=== PATIENT | male | born 1965 | race Caucasian/White ===

== ENCOUNTER 2025-10-20 00:06 | Day surgery (SDC) | payer BC, SELFPAY ==
[2025-10-01 12:43] VITALS: BMI 28.0
--- OUTSIDE RECORDS SUMMARY | 2025-10-20 00:15 | XMS_ITS | Encounter Summary ---
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 Historical Provider Final Res ult documented in this encounter Visit Diagnoses Not on filedocumented in this encounter Care Teams Payroll Specialist Relationship Specialty Start Date End Date Omkar Sifuentes MD [address] [address] PCP - General Family Medicine 09/11/18 documented as of this encounter
--- OUTSIDE RECORDS SUMMARY | 2025-10-20 00:15 | XMS_ITS | Clinical Summary ---
Author Organization [facility] Address [address] [place] [address] Care Team Providers Care Cable Tender Name Role Phone Omkar Sifuentes MD Primary Care Provider [phone] Allergies Active Allergy Reactions Criticality Noted Date Comments Erythromycin Swelling Medium 10/28/1972 Erythromycin Base Unknown 03/11/2024 Penicillins Swelling,Unknown Medium 10/28/1972 Medications sertraline (ZOLOFT) 100 mg tablet Take 1 tablet (100 mg total) by mouth daily 12/29/2021 Active MEN'S MULTI-VITAMIN ORAL Take by mouth Active rosuvastatin (CRESTOR) 10 mg tablet TAKE 1 TABLET(10 MG) BY MOUTH DAILY 90 tablet 1 01/01/2025 Active Active Problems Problem Noted Date Diagnosed Date Acute cough 01/11/2023 Annual physical exam 01/05/2022 Encounters Date Type Department Care Team Description 08/24/2025 Results Follow-Up [facility] Family Medicine at [address] [place] [address] Omkar Sifuentes MD CBC with auto differential, Comprehensive metabolic panel, Lipid panel 08/18/2025 Patient Message [facility] Medical [facility] Medicine at [address] [place] [address] Omkar Sifuentes MD Colonoscopy from Last 3 Months Immunizations Immunization Administration Dates Next Due Influenza, Unspecified 07/28/2024(Deferr ed: Patient Refused),07/28/2023(Deferred: Patient Refused),01/11/2023(Deferred: Patient Refused),08/20/2022(Deferred: Patient Refused),08/16/2021(Deferred: Patient Refused) Tdap 09/09/2018 ZOSTER Recombinant 03/10/2022,01/07/2022 Medical History Medical History Date Comments Anxiety Depression Suicidal behavior with attempted self-injury (HC C) Family History Medical History Relation Name Comments No Known Problems Father No Known Problems Mother Relation Name Status Comments Father Mother Social History Tobacco Use Types Packs/Day Years Used Date Smoking Tobacco: Some Days Cigars Smokeless Tobacco: Never Tobacco Cessation:Ready to Q uit: Not Asked; Counseling Given: Not Answered Alcohol Use Standard Drinks/Week Comments No 0 (1 standard drink = 0.6 oz pur e alcohol) AUDIT-C Answer Date Recorded Q1: How often do you have a drink containing alc ohol? Monthly or less 01/13/2024 Q2: How many drinks containi ng alcohol do you have on a typical day when you are drinking? 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 Gender Identity Not on file Sexual Orientation Not on file Last Filed Vital Signs Vital Sign Reading Time Taken Comments Blood Pressure 124/70 02/25/2025 3:27 PM CDT Pulse 92 02/25/2025 3:27 PM CDT Temperature 36.9 C (98.4 F) 02/25/2025 3:27 PM CDT Respiratory Rate 18 01/13/2024 8:15 AM CDT Oxygen Saturation 96% 02/25/2025 3:27 PM CDT Inhaled Oxygen Concentration - - Weight 89.6 kg (197 lb 8 oz) 02/25/2025 3:27 PM CDT Height 175.3 cm (5' 9) 02/25/2025 3:27 PM CDT Body Mass Index 29.17 02/25/2025 3:27 PM CDT Plan of Treatment Health Maintenance Due Date Last Done Comments Colon Cancer Screening-Colonoscopy 1965 Hepatitis C Screening 1965 Hepatitis B Screening 1983 Pneumococcal vaccine <65 (1 of 2 - PCV) 1984 Covid-19 Vaccine (5 - 2024-2 6 season) 2025 09/29/2022, 10/14/2021, 01/24/2021, Additional history exists Influenza Vaccine (#1) 2025 Prostate Cancer Screening-PSA 01/05/2026, 01/15/2023, 01/09/2022, Additional history exists Depression Screening 02/25/2026 02/25/2025, 01/11/2023, 01/05/2022 Regular Well Visit/Exam 18-64 02/25/2026, 01/13/2024, 01/11/2023, Additional history exists DTaP/Tdap/Td Vaccine (2 - Td or Tdap) 09/09/2028 09/09/2018 Zoster Vaccine Completed 03/10/2022, 01/07/2022 Procedures Procedure Name Priority Date/Time Associated Diagnosis Comments LIPID PANEL Routine 08/17/2025 10:37 AM CDT Annual physical exam COMPREHENSIVE METABOLIC PANEL Routine 08/17/2025 10:37 AM CDT Annual physical exam CBC WITH AUTO DIFFERENTIAL Routine 08/17/2025 10:37 AM CDT Annual physical exam PSA SCREEN Routine 01/06/2024 7:33 AM CDT Annual physical exam Elevated glucose Elevated platelet count Elevated cholesterol from Last 3 Months or Most Recently Relevant to Health Maintenance Results * (ABNORMAL) CBC with auto differential (08/17/2025 10:37 AM CDT) Pathologist [facility] WBC 5.9 3.8 - 10.8 Thousand/u L [facility] RBC, POC 5.09 4.20 - 5.80 Million/uL [facility] Hgb 15.8 13.2 - 17.1 g/dL [facility] Hct 47.7 38.5 - 50.0 % [facility] MCV 93.7 80.0 - 100.0 fL [facility] MCH 31.0 27.0 - 33.0 pg [facility] MCHC 33.1 32.0 - 36.0 g/dL [facility] Comment: For adults, a slight decrease in the calculated MCHC value (in the range of 30 to 32 g/dL) is most likely not clinically significant; however, it should be interpreted with caution in correlation with other red cell parameters and the patient's clinical condition. Rdw 12.2 11.0 - 15.0 % [facility] Platelets 431(H) 140 - 400 Thousand/u L [facility] MPV 9.6 7.5 - 12.5 fL [facility] Neutrophils, abs 3,806 1,500 - 7,800 cells/uL [facility] Lymphocytes, abs 1,375 850 - 3,900 cells/uL [facility] Monocyte abs 419 200 - 950 cells/uL [facility] Eosinophils, abs 260 15 - 500 cells/uL [facility] Basophils, abs 41 0 - 200 cells/uL [facility] Neutrophils 64.5 % [facility] Lymphocyte pct 23.3 % [facility] Monocytes 7.1 % [facility] Eosinophils 4.4 % [facility] Basophils 0.7 % [facility] Blood 08/17/2025 10:3 7 AM CDT 08/17/2025 10:38 AM CDT us Omkar Sifuentes MD LAB BLOOD ORDERABLES Final Re sult [facility] [address] [id number] * (ABNORMAL) Lipid panel (08/17/2025 10:37 AM CDT) Cholesterol 331(H) <200 mg/dL [facility] HDL 49 > OR = 40 mg/dL [facility] Triglycerides 129 <150 mg/dL [facility] LDL 255(H) mg/dL (calc) [facility] Comment: LDL-C levels > or = 190 mg/dL may indicate familial hypercholesterolemia (FH). Clinical assessment and measurement of blood lipid levels should be considered for all first degree relatives of patients with an FH diagnosis. LDL Cholesterol (LDL-C) levels > or = 300 mg/dL may indicate homozygous familial hypercholesterolemia (HoFH). Untreated, these extremely high LDL-C levels can result in premature CV events and mortality. Patients should be identified early and provided appropriate interventions to reduce the cumulative LDL-C burden from . For questions about testing for familial hypercholesterolemia, please call [employer] at 1.755.GENE.INFO. Kike Ellison, et al. J National Lipid Association Recommendations for Patient-Centered Management of Dyslipidemia: Part 1 Journal of Clinical Lipidology 2015;9(2), 129-169. Mina Souza et al. (2014). Homozygous familial hypercholesterolaemia: new insights and guidance for clinicians to improve detection and clinical management. Heart Journal, 35(32), 3034-5577. Reference range: <100 Desirable range <100 mg/dL for primary prevention; <70 mg/dL for patients with CHD or diabetic patients with > or = 2 CHD risk factors. LDL-C is now calculated using the Rip-Rayo calculation, which is a validated novel method providing better accuracy than the Friedewald equation in the estimation of LDL-C. Rip LEAHY et al. VANNESSA. 2013;310(19): 9752-4787 (http://education.iCentera.[employer]/faq/PLX477) Chol/HDL ratio 6.8(H) <5.0 (calc) [facility] Non-HDL, (LDL+VLDL) 282(H) <130 mg/dL (calc) [facility] Comment: Non-HDL level > or = 220 is very high and may indicate genetic familial hypercholesterolemia (FH). Clinical assessment and measurement of blood lipid levels should be considered for all first-degree relatives of patients with an FH diagnosis. For patients with diabetes plus 1 major ASCVD risk factor, treating to a non-HDL-C goal of <100 mg/dL (LDL-C of <70 mg/dL) is considered a therapeutic option. Blood 08/17/2025 10:3 7 AM CDT 08/17/2025 10:38 AM CDT us Omkar Sifuentes MD LAB BLOOD ORDERABLES Final Re sult [facility] [address] [id number] * (ABNORMAL) Comprehensive metabolic panel (08/17/2025 10:37 AM CDT) Glucose 92 65 - 99 mg/dL [facility] Comment: Fasting reference interval BUN 13 7 - 25 mg/dL [facility] Creatinine 0.73 0.70 - 1.30 mg/dL [facility] eGFR 105 > OR = 60 mL/min/1.7 3m2 [facility] BUN/creat ratio SEE NOTE: 6 - 22 (calc) [facility] Comment: Not Reported: BUN and Creatinine are within reference range. Sodium 136 135 - 146 mmol/L [facility] Potassium, pl 4.4 3.5 - 5.3 mmol/L [facility] Chloride 101 98 - 110 mmol/L [facility] CO2 27 20 - 32 mmol/L [facility] Calcium 9.9 8.6 - 10.3 mg/dL [facility] Protein, sr 7.6 6.1 - 8.1 g/dL [facility] Albumin 4.7 3.6 - 5.1 g/dL [facility] GLOBULIN 2.9 1.9 - 3.7 g/dL (calc) [facility] Alb/glob ratio 1.6 1.0 - 2.5 (calc) [facility] Bilirubin, total 1.6(H) 0.2 - 1.2 mg/dL [facility] Alk phos 53 35 - 144 U/L [facility] AST 19 10 - 35 U/L [facility] ALT (SGPT) 40 9 - 46 U/L [facility] Blood 08/17/2025 10:3 7 AM CDT 08/17/2025 10:38 AM CDT Omkar Sifuentes MD LAB BLOOD ORDERABLES Final Re sult Performing Organization Address [facility] de Phone Number [facility] [address] [facility] [place] [address] * PSA screen (01/06/2024 7:33 AM CDT) PSA 1.40 < OR = 4.00 ng/mL [facility] Comment: The total PSA value from this assay system is standardized against the WHO standard. The test result will be approximately 20% lower when compared to the equimolar-standardized total PSA (Sean Diony). Comparison of serial PSA results should be interpreted with this fact in mind. This test was performed using the Siemens chemiluminescent method. Values obtained from different assay methods cannot be used interchangeably. PSA levels, regardless of value, should not be interpreted as absolute evidence of the presence or absence of disease. Blood 01/06/2024 7:33 AM CDT 01/06/2024 7:34 AM CDT Omkar Sifuentes MD LAB BLOOD ORDERABLES Final Re sult Performing Organization Address [facility] Co de Phone Number [facility] [address] [facility] [place] [address] from Last 3 Months or Most Recently Relevant to Health Maintenance Insurance [facility] [place] Advance Directives For more information, please contact: [phone] Documents on File Type Date Recorded Patient Yard Clerk Expl anation Power of Travel Clerk 01/05/2022 9:16 AM Care Teams Cable Tender Relationship Specialty Start Date End Date Omkar Sifuentes MD [address] [place] [address] PCP - General Family Medicine 09/11/18
--- OUTSIDE RECORDS SUMMARY | 2025-10-20 00:15 | XMS_ITS | Clinical Summary ---
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 Gender Identity Not on file Sexual Orientation Not on file Plan of Treatment Health Maintenance Due Date Last Done Comments Colorectal Cancer Screening Colonoscopy (10 Years) 1965 Annual Physical 1968 Hepatitis C 1983 Pneumococcal Vaccine: 50+ Years (1 of 1 - PCV) 2015 Zoster Vaccines (2 of 2) 03/04/2022 01/07/2022 COVID-19 Vaccine (4 - 2024-2 6 season) 2025 10/14/2021, 01/24/2021, 01/03/2021 Influenza Adult (#1) 2025 DTaP, Tdap and Td Vaccines ( 2 - Td or Tdap) 09/09/2028 09/09/2018 Hepatitis A Vaccines Aged Out No long er eligible based on patient's age to complete this topic Meningococcal B Vaccine Aged Out No l onger eligible based on patient's age to complete this topic Meningococcal Vaccine Aged Out No celsa kwasi eligible based on patient's age to complete this topic RSV Immunizations Under 20 Months Aged Out No longer eligible b ased on patient's age to complete this topic Insurance [facility] Care Teams Horses Or Mules Teamster Relationship Specialty Start Date End Date Omkar Sifuentes MD [address] [address] PCP - General FAMILY PRACTICE 01/08/22
--- OUTSIDE RECORDS SUMMARY | 2025-10-20 00:15 | XMS_ITS | Patient Health Record ---
Author Organization [facility] Address [address] [place] [address] Care Team Providers Care Rn Case Manager Name Role Phone Omkar Sifuentes MD Primary Care Provider Unavailab Nydia Lawrence Unavailable [phone] Margie Cesarloly Unavailable [phone] Allergies Allergen (clinical drug ingredient) Drug/Non Drug Allergy documented on EMR Reaction Allergy Type Onset Date Status erythromycin Erythromycin Base Unknown Drug Allergy 2023 Active Substance with penicillin structure and antibacterial mechanism of action (substance) Penicillins Unknown Drug Allergy 03/11/2024 Active Reason For Referral No Information Medications Medication SIG (Take, Route, Frequency, Duration) Notes Start Date End Date Status Sertraline HCl 100 MG Tablet 1 tablet Oral Once a day; Duration: 90 days 09/09/2025 Active Rosuvastatin Calcium 10 MG Tablet Oral 03/11/2024 Active Social History Tobacco Use: Social History Observation Description Date Details (start date - stop date) Light tobacco s moker NA - NA Sex Assigned At : Social History Observation Description Sex Assigned At Male Social History Miscellaneous: Social Info Question Answer Notes Advance Care Planning Are you your own decision-maker Yes Do you have Power of Tool Designer for Health or Medi ladi? Yes Do you have a power of attorney lawyer for health? Yes Do you have power of attorney lawyer for Medical ? Yes If yes, then please bring the POA paperwork so that we can upload it. Yes Safety issues: Are there any firearms in the house? No Social History Social Info Question Answer Notes Household: Marital Status: Number of Adults in household: 2 Number of Children in Household: 0 Level of Education: Professional Schools/Masters /PhD Drug/Alcohol: Social Info Question Answer Notes Drugs Have you used drugs other than those for medical reasons in the past 12 months? No AUDIT-C (Standard) Did you have a drink containing alcohol in the past year? Yes How often did you have six or more drinks on one occasion in the past year? Less than monthly (1 point) How many drinks did you have on a typical day when you were drinking in the past year? 1 or 2 drinks (0 point) How often did you have a drink containing alcohol in the past year? 2 to 4 times a month (2 points) Tobacco Use: Social Info Question Answer Notes Tobacco Control (Standard) Tobacco use: Light tobacco smoker Additional Details Category Social Info Options Details Miscellaneous: Occupation: Tool Designer Migrated Social History Migrated Social History Alcohol Intake: Occasional 03/11/2024,Tobacco Years: Former smoker 03/11/2024 Problems Problem Type SNOMED Code ICD Code Onset Dates Problem Status W/U Status Risk Notes Problem Recurrent major depression (84015203) Major depressive disorder, recurrent, unspecified (F33.9) Active confirmed Problem Recurrent major depression (29378508) MDD (recurrent major depressive disorder) in remission (F33.40) Active confirmed Problem Essential hypertension (15903463) Hypertension, unspecified type (I10) Active confirmed Vital Signs Heart Rate 70 /min 09/09/2025 Height-cm 172.72 cm 09/09/2025 Blood pressure diastolic 79 mm Hg 09/09/2025 Weight-kg 85.73 kg 09/09/2025 Height 68.00 in 09/09/2025 Blood pressure systolic 143 mm Hg 09/09/2025 Weight 189 lbs 09/09/2025 BMI 28.73 kg/m2 09/09/2025 Encounters Encounter Location Date Provider Diagnosis [facility] [address] [place] [address] 03/11/2025 Nydia Teixeira Nicotine use Z72.0 ; MDD (recurrent major depressive disorder) in remission F33.40 ; Encounter for screening for cardiovascular disorders Z13.6 and Negative depression screening Z13.31 [facility] [address] [place] [address] 09/09/2025 Nydia Teixeira MDD (recurrent major depressive disorder) in remission F33.40 and Nicotine use Z72.0 [facility] [address] [place] [address] 10/29/2024 [facility] [address] [place] [address] 04/01/2025 Nydia Teixeira [facility] [address] [place] [address] 04/01/2025 Nydia Teixeira Assessments Encounter Date Diagnosis (ICD Code) Assessment Notes Treatment Notes Treatment Clinical Notes Section Notes 03/11/2025 MDD (recurrent major depressive disorder) in remission (ICD-10 - F33.40) SSRI/SNRI side effects discussed including but not limited to, gastric upset, nausea, vomiting, diarrhea and/or constipation, weight changes, sexual side effects including loss of libido, increased suicidal thoughts/behavi ors in children and young adults, and serotonin syndrome. 03/11/2025 Nicotine use (ICD-10 - Z72.0) 09/09/2025 MDD (recurrent major depressive disorder) in remission (ICD-10 - F33.40) SSRI/SNRI side effects discussed including but not limited to, gastric upset, nausea, vomiting, diarrhea and/or constipation, weight changes, sexual side effects including loss of libido, increased suicidal thoughts/behavi ors in children and young adults, and serotonin syndrome. 09/09/2025 Nicotine use (ICD-10 - Z72.0) 03/11/2025 Encounter for screening for cardiovascular disorders (ICD-10 - Z13.6) 03/11/2025 Negative depression screening (ICD-10 - Z13.31) 03/11/2025 Other Stable, continue sertraline 100mg daily for mood- depression in remission status. Patient educated on all medications including potential benefits, side effects, risks. Educated on proper dosing schedule and importance of compliance. Previous records from Dr Cesar reviewed for continuity of care -Assessment and treatment plan reviewed with patient. -Compliance with treatment plan importance discussed. -Discussed the risks/benefits of this medication -Discussed medication side effects. -Contact office if symptoms worsen. -Discussed that it can take up to 6-8 weeks to see full therapeutic effects of psychotropic medications. -Crisis prevention hotline 988. 09/09/2025 Other Stable on current medication regimen, continue at current doses. -Refills sent in today -No concerns today Patient educated on all medications including potential benefits, side effects, risks. Educated on proper dosing schedule and importance of compliance. -Assessment and treatment plan reviewed with patient. -Compliance with treatment plan importance discussed. -Discussed the risks/benefits of this medication -Discussed medication side effects. -Contact office if symptoms worsen. -Discussed that it can take up to 6-8 weeks to see full therapeutic effects of psychotropic medications. -Crisis prevention hotline 168. Plan Of Treatment Next Appt Details Provider Name:Nydia Lexa hollingsworth, 03/03/2026 08:00:00 AM, [address], [facility] [address], [place], [address], Insurance Providers Payer Name Payer Address Payer Phone Subscriber Number Group Number Insured Name Patient Relationship to Insured Coverage Start Date Coverage End Date [facility] [address] [place] [address] [id number] ADALID PUTNAM Self - patient is the insured Medical (General) History Medical History History ICD Code Problems: Recurrent major depression , abdominal aortic aneurysm: No undefined atrial fibrillation: No chronic fatigue syndrome: No essential tremor: No hyperlipidemia: No hypertension: No Parkinson's disease: No restless leg syndrome: No stroke: No subdural hematoma: No type 1 diabetes mellitus: No type 2 diabetes mellitus: No vitamin B12 deficiency: No vitamin D deficiency: No
[2025-10-20 08:04] VITALS: BP 128/79; PULSE 75; RESP 16; TEMP 36.1; O2SAT 100
[2025-10-20] MEDS: LACTATED RINGERS 1,000 ML 150 ML IV CONT (08:10)
--- NOTE | 2025-10-20 08:29 | WPDANESEPPF ---
Anes - Initial Pre Proc Eval Procedure: Operation Date: 10/20/25 09:30 Proposed Procedures p Screening Colonoscopy - Lemuel Jacome MD Date/Time: 10/20/25 08:29 Surgeon: Lemuel Jacome MD Pre Op Diagnosis: Screening Patient Data Age: 59 Gender: M Height: 1.75 m Weight: 84.4 kg Last Vital Signs Temp 36.1 C L 10/20/25 08:04 Pulse 75 10/20/25 08:04 Resp 16 10/20/25 08:04 BP 128/79 10/20/25 08:04 Pulse Ox 100 10/20/25 08:04 O2 Del Method Room Air 10/20/25 08:04 Allergies Allergy/AdvReac Type Severity Reaction Status Date / Time erythromycin base Allergy Intermediate Unknown Verified 10/20/25 08:02 Penicillins Allergy Intermediate unknown Verified 10/20/25 08:02 Home Medications ?Medication ?Instructions ?Recorded ?Confirmed ?Type rosuvastatin 10 mg tablet 10 mg PO DAILY 10/01/25 10/20/25 History sertraline 100 mg tablet 100 mg PO DAILY 10/01/25 10/20/25 History Patient hx anesthesia problems: none Family hx anesthesia problems: none Results Review: All pre-operative results and documents have been reviewed as part of the pre-operative evaluation. [facility] Social History Social History Smoking status: Former smoker Tobacco type: cigarettes Alcohol intake: current Drinks per week: 2 Substance use type: does not use Living arrangements: with family Spiritual care concerns: No Anes - Eval Final PreProcedure Day of Procedure 10/20/25 08:29 Patient weight: overweight Heart: regular rate and rhythm Lungs: clear to auscultation Airway: Mallampati scale class II Neurological: alert and oriented Last oral intake: >/= 8 hours ASA classification: II Emergent: no Anesthetic plan: proceed Anesthesia type and monitoring: general GIVS and standard monitoring Results Review: All pre-operative results and documents have been reviewed as part of the pre-operative evaluation. Informed Consent: The patient's anesthetic plan and its attendant risks and benefits were discussed with the patient/family/POA. Questions were solicited and answers provided to the satisfaction of the patient/family/POA.
--- NOTE | 2025-10-20 08:31 | WPDANESEPPF ---
Anes - Initial Pre Proc Eval Procedure: Operation Date: 10/20/25 09:30 Proposed Procedures p Screening Colonoscopy - Lemuel Jacome MD Date/Time: 10/20/25 08:31 Surgeon: Lemuel Jacome MD Pre Op Diagnosis: Screening Patient Data Age: 59 Gender: M Height: 1.75 m Weight: 84.4 kg Last Vital Signs Temp 36.1 C L 10/20/25 08:04 Pulse 75 10/20/25 08:04 Resp 16 10/20/25 08:04 BP 128/79 10/20/25 08:04 Pulse Ox 100 10/20/25 08:04 O2 Del Method Room Air 10/20/25 08:04 Allergies Allergy/AdvReac Type Severity Reaction Status Date / Time erythromycin base Allergy Intermediate Unknown Verified 10/20/25 08:02 Penicillins Allergy Intermediate unknown Verified 10/20/25 08:02 Home Medications ?Medication ?Instructions ?Recorded ?Confirmed ?Type rosuvastatin 10 mg tablet 10 mg PO DAILY 10/01/25 10/20/25 History sertraline 100 mg tablet 100 mg PO DAILY 10/01/25 10/20/25 History Patient hx anesthesia problems: none Family hx anesthesia problems: none Results Review: All pre-operative results and documents have been reviewed as part of the pre-operative evaluation. [facility] [place] Social History Social History Smoking status: Former smoker Tobacco type: cigarettes Alcohol intake: current Drinks per week: 2 Substance use type: does not use Living arrangements: with family Spiritual care concerns: No Anes - Eval Final PreProcedure Day of Procedure 10/20/25 08:31 Patient weight: overweight Heart: regular rate and rhythm Lungs: clear to auscultation Airway: Mallampati scale class II Neurological: alert and oriented Last oral intake: >/= 8 hours ASA classification: II Emergent: no Anesthetic plan: proceed Anesthesia type and monitoring: general GIVS and standard monitoring Results Review: All pre-operative results and documents have been reviewed as part of the pre-operative evaluation. Informed Consent: The patient's anesthetic plan and its attendant risks and benefits were discussed with the patient/family/POA. Questions were solicited and answers provided to the satisfaction of the patient/family/POA.
--- NOTE | 2025-10-20 09:19 | PM.HPGS ---
History of Present Illness History of Present Illness Consent: Risks, benefits, and alternatives have been discussed and questions answered. Patient agrees to proceed with procedure. Chief complaint: Screening Narrative: Alvarado Plunkett is a 59 year old male here for screening colonoscopy Review of Systems Review of Systems: All systems reviewed & are unremarkable except as noted in HPI and below PMFSH Past Medical History Medical History (Updated 10/20/25 @ 09:20 by Lemuel Jacome MD) Colon cancer screening Social History Social History Smoking status: Former smoker Tobacco type: cigarettes Alcohol intake: current Drinks per week: 2 Substance use type: does not use Living arrangements: with family Spiritual care concerns: No Meds Home Medications and Allergies Home Medications ?Medication ?Instructions ?Recorded ?Confirmed ?Type rosuvastatin 10 mg tablet 10 mg PO DAILY 10/01/25 10/20/25 History sertraline 100 mg tablet 100 mg PO DAILY 10/01/25 10/20/25 History Allergies Allergy/AdvReac Type Severity Reaction Status Date / Time erythromycin base Allergy Intermediate Unknown Verified 10/20/25 08:02 Penicillins Allergy Intermediate unknown Verified 10/20/25 08:02 Vital Signs Vital Signs - 24 hr 10/20/25 08:04 Temperature 97 F L Pulse Rate 75 Respiratory Rate 16 Blood Pressure 128/79 Pulse Oximetry 100 Oxygen Delivery Room Air Exam Const: General: cooperative Assessment and Plan Assessment and plan (1) Colon cancer screening: Code(s): Z12.11 - Encounter for screening for malignant neoplasm of colon Status: Acute Assessment and Plan: colonoscopy
[2025-10-20 09:35] VITALS: BP 111/69; PULSE 74; RESP 20; O2SAT 98
[2025-10-20 09:45] VITALS: BP 112/69; PULSE 70; RESP 18; O2SAT 99
[2025-10-20 09:55] VITALS: BP 123/77; PULSE 64; RESP 18; O2SAT 100
== END 2025-10-20 10:03 | disposition home or self-care (01) ==
PROVIDERS: PCP Family Medicine; Referring Provider Family Medicine; Visit Provider Internal Medicine Gastroenterology
PROC: 0DJD8ZZ Inspection of Lower Intestinal Tract, Via Natural or Artificial Opening Endoscopic (ICD-10-PCS; CPT 45378; principal; 2025-10-20 09:30)
DX: Z12.11 Encounter for screening for malignant neoplasm of colon (principal); K57.30 Diverticulosis of large intestine without perforation or abscess without bleeding; K64.8 Other hemorrhoids; Z87.891 Personal history of nicotine dependence
CPT/HCPCS: 45378; J7120